=== PATIENT | female | born 2000 | race Caucasian/White ===

== ENCOUNTER → 2018-04-01 15:08 | Outpatient (CLI) | payer BC, SELFPAY ==
--- NOTE | 2018-04-01 15:24 | XR_ITS ---
XR abdomen min 2V HISTORY: ITS.REASON: EPIGASTRIC PAIN ORDERING PHYSICIAN: RADHAMES Payan PATIENT AGE: 17 years COMPARISON: None FINDINGS: The bowel gas pattern is unremarkable. No obvious obstruction.. No abnormal calcifications are evident. No obvious renal or ureteral calculi.. No acute bony anomalies evident. No evidence of free air. Nonspecific nonobstructive bowel gas pattern. IMPRESSION: No acute finding
== END ==
PROVIDERS: PCP Physician Assistant; Visit Provider Physician Assistant
DX: R10.13 Epigastric pain (principal)
CPT/HCPCS: 74019

== ENCOUNTER → 2020-11-14 16:39 | Outpatient (CLI) | payer BC, SELFPAY ==
[2020-11-16 11:32] LABS: Covid-19 Nasal PCR Sendout P&C NEGATIVE
== END ==
PROVIDERS: PCP Family Medicine; Visit Provider Family Medicine
DX: Z03.818 Encounter for observation for suspected exposure to other biological agents ruled out (principal)
CPT/HCPCS: U0004

== ENCOUNTER 2020-11-23 13:35 | Emergency (ER) | payer BC, SELFPAY ==
[2020-11-23 13:36] VITALS: BP 142/101; PULSE 120; RESP 19; TEMP 36.8; O2SAT 98; BMI 17.2
--- NOTE | 2020-11-23 13:49 | HMH.EDGENADL ---
ED Disposition Clinical Impression: Cystitis Disposition: Home, Self-Care Condition on Discharge: Good Additional Instructions: Please take medications as prescribed. Continue [id number] medications/prescribed medications for GI discomfort. Return immediately if any new or worsening symptoms prior to following up with gastroenterology next week. Prescriptions: Nitrofurantoin Monohyd/M-Cryst [Macrobid 100 mg Capsule] 100 mg PO BID #14 cap Transmission Status: Pending to [facility] #[id number] Referrals: Margarito Cline MD [Primary Care Provider] - - Critical Care Critical Care Time: No Attestation: On 11/23/20, the high probability of a clinically significant, sudden or life threatening deterioration of the following system(s) required my full and direct attention, intervention and personal management. The time I documented below is in addition to time spent performing reported procedures but includes the following listed in this critical care notation. Medical Decision Making - Medical Records Medical records reviewed: Yes: I reviewed the patient's medical records. - Johny Inquiry Pt receiving controlled substance: No Vital Signs: 11/23/20 13:36 11/23/20 14:29 Temperature 98.2 F Temperature Source Oral Pulse Rate [Left Radial] 120 H 68 Respiratory Rate 19 18 Blood Pressure [Right Arm] 142/101 H 123/86 Blood Pressure Mean [Right Arm] 114 98 Blood Pressure Source [Right Arm] Automatic Cuff Automatic Cuff Blood Pressure Position [Right Arm] Sitting Sitting 02 Sat by Pulse Oximetry 98 100 Oxygen Delivery Method Room Air - Lab Data Lab Results 11/23/20 13:45: Urine Color Yellow, Urine Appearance Clear, Urine pH 6.5, Ur Specific Ord <= 1.005, Urine Protein Negative, Urine Glucose (UA) Negative, Urine Ketones Negative, Urine Blood Negative, Urine Nitrate Negative, Urine Bilirubin Negative, Urine Urobilinogen 0.2, Ur Leukocyte Esterase 1+ A, Urine RBC None, Urine WBC 10-20, Ur Squamous Epith Cells 5-10, Urine Bacteria 2+ 11/23/20 13:45: Urine HCG, Qual Negative 11/23/20 14:00: WBC 4.7 L, RBC 5.13, Hgb 15.9, Hct 47.3 H, MCV 92.3, MCH 31.0, MCHC 33.6, RDW 12.7, Plt Count 275, MPV 6.9 L, Neut % (Auto) 65.2, Lymph % (Auto) 26.1, Eaton % (Auto) 6.3, Eos % (Auto) 1.7, Baso % (Auto) 0.7, Neut # (Auto) 3.1, Lymph # (Auto) 1.2, Eaton # (Auto) 0.3, Eos # (Auto) 0.1, Baso # (Auto) 0.0 11/23/20 14:00: Sodium 141, Potassium 3.9, Chloride 103, Carbon Dioxide 26, Anion Gap 15.9 H, BUN 9, Creatinine 0.90, Estimated Creat Clear 82, Estimated GFR 78, Est GFR ( Amer) 95, Glucose 124 H, Calcium 10.3 H, Total Bilirubin 0.9, AST 28, ALT 20, Alkaline Phosphatase 48, Total Protein 8.7 H, Albumin 5.1 H, Globulin 3.6 H, Albumin/Globulin Ratio 1.4, Amylase 74, Lipase 206 11/23/20 14:00: Magnesium 2.0 Result diagrams: 11/23/20 14:00 11/23/20 14:00 Orders (Tests/Meds): ED MEDICATIONS Discontinued Medications Generic Name Dose Route Start Last Admin Trade Name Freq PRN Reason Stop Dose Admin Belladonna Alkaloids 60 ml 11/23/20 13:59 11/23/20 14:16 Gi Cocktail 60ml Udc PO 11/23/20 14:00 60 ml ONCE ONE Administration Lactated Ringer's 1,000 mls @ 999 mls/hr 11/23/20 14:00 11/23/20 14:16 Lactated Ringer's 1000 Ml Bag IV 11/23/20 15:00 999 mls/hr .Q1H1M SHY Administration Nitrofurantoin Macrocrystals 100 mg 11/23/20 15:30 11/23/20 15:36 Nitrofurantoin 100mg Capsule PO 11/23/20 15:31 100 mg ONCE ONE Administration ORDERS Category Date Time Status Urine Culture Stat Micro 11/23/20 13:45 Received Medical Decision Narrative: Patient is a 20-year-old female presenting with concern for dehydration. Patient does have abdominal pain that has been pretty constant for the past several months. No signs of acute surgical abdomen on evaluation today but there will be serial abdominal checks throughout emergency department stay. Patient be treated with a fluid bolus as
[2020-11-23 14:10] LABS: Microscopic, Urine URINE MICROSCOPIC (MICROSCOPIC)
[2020-11-23 14:13] LABS: Appearance,Urine CLEAR (Clear); Bilirubin,Urine Negative (Negative); Blood, Urine Negative (Negative); Color,Urine YELLOW (Yellow); Glucose,Urine (UA) Negative (Negative); Ketones,Urine Negative (Negative); Leukocyte Esterase,Urine 1+ (Negative); Nitrate,Urine Negative (Negative); PH,Urine 6.5 (5.0-8.5); Protein,Urine Negative (Negative); Specific Gravity, Urine <= 1.005 (1.005-1.030); Urobilinogen,Urine 0.2 EU/dl (0.2)
[2020-11-23 14:15] LABS: Urine Pregnancy, HCG Qual. Negative (Negative)
[2020-11-23 14:21] LABS: Bacteria,Urine 2+ /lpf
[2020-11-23 14:23] LABS: Basophils % 0.7 % (0.1-2.0); Eosinophils # 0.1 K/mm3 (0.0-0.4); Eosinophils % 1.7 % (0.1-12.0); Hematocrit 47.3 % (37.0-47.0); Hemoglobin 15.9 g/dL (12.2-16.2); Lymphocytes # 1.2 K/mm3 (0.7-4.5); Lymphocytes % 26.1 % (10-50); Mean Corpuscular HGB Conc 33.6 g/dL (31.8-35.4); Mean Corpuscular Volume 92.3 fl (81-99); Mean Platelet Volume 6.9 fl (7.4-10.4); Monocytes # 0.3 K/mm3 (0.1-1.0); Monocytes % 6.3 % (1.7-9.3); Neutrophils # 3.1 K/mm3 (1.8-7.8); Neutrophils % 65.2 % (37.0-80.0); Platelet Count 275 K/mm3 (142-424); Red Blood Count 5.13 M/mm3 (4.20-5.40); Red Cell Distribution Width 12.7 % (11.5-17.5); White Blood Count 4.7 K/mm3 (4.8-10.8)
[2020-11-23 14:24] LABS: Chloride 103 mmol/L (98-107); Sodium 141 mmol/L (136-145)
[2020-11-23 14:25] LABS: Potassium 3.9 mmoL/L (3.5-5.1)
[2020-11-23 14:27] LABS: Alanine Aminotransferase 20 U/L (12-78); Alkaline Phosphatase 48 U/L (38-126); Amylase 74 U/L (30-110); Anion Gap 15.9 mEq/L (5-15); Aspartate Amino Transferase 28 U/L (14-36); Bilirubin,Total 0.9 mg/dl (0.2-1.3); Blood Urea Nitrogen 9 mg/dl (7-17); Calcium 10.3 mg/dl (8.4-10.2); Carbon Dioxide 26 mmol/L (22.0-30.0); Creatinine Clearance Estimated 82 mL/min (50-200); Estimated Glomerular Filt Rate 78 ml/min (>60); GFR (African American) 95 ML/MIN (>60); Glucose 124 mg/dl (74-100); Lipase 206 U/L (23-300)
[2020-11-23 14:28] LABS: Albumin Level 5.1 g/dl (3.5-5.0); Albumin/Globulin Ratio 1.4 (1.1-1.8); Globulin 3.6 g/dL (1.3-3.2); Total Protein,Serum 8.7 g/dl (6.3-8.2)
[2020-11-23 14:29] VITALS: BP 123/86; PULSE 68; RESP 18; O2SAT 100
[2020-11-23 16:55] VITALS: BP 117/75; PULSE 74; RESP 16; TEMP 36.6; O2SAT 98
== END 2020-11-23 16:57 | disposition home or self-care (01) ==
PROVIDERS: Emergency Provider Emergency Medicine; PCP Family Medicine
DX: N30.00 Acute cystitis without hematuria (principal); E86.0 Dehydration; R03.0 Elevated blood-pressure reading, without diagnosis of hypertension
CPT/HCPCS: 80053; 81001; 81025; 82150; 83690; 83735; 85025; 87086; 96365; 99283

== ENCOUNTER 2022-11-08 17:54 | Emergency (ER) | payer BC, SELFPAY ==
[2022-11-08 17:55] VITALS: BP 139/98; PULSE 82; RESP 17; TEMP 37.3; O2SAT 98; BMI 19.2
[2022-11-08 18:05] VITALS: BP 139/98; PULSE 82; RESP 17; TEMP 37.3; O2SAT 98; BMI 19.2
--- NOTE | 2022-11-08 18:19 | EXP.UTC ---
Discharge Plan Disposition Patient Disposition: Home, Self-Care Condition: Good Prescriptions Prescriptions: New cephalexin 500 mg capsule 500 mg PO QID 10 Days Qty: 40 0RF mupirocin 2 % ointment 1 applic topical TID 10 Days Qty: 22 0RF Rx Instructions: apply to front and back of piercing for infection ondansetron 4 mg tablet,disintegrating 4 mg PO Q8H PRN (Reason: nausea and vomiting) Qty: 10 0RF No Action spironolactone 50 mg tablet 50 mg PO DAILY Qty: 60 Label Comments: TK 1 T PO BID norethindrone-e.estradiol-iron 1 mg-20 mcg (21)/75 mg (7) tablet 1 tab PO DAILY Qty: 28 0RF nitrofurantoin monohyd/m-cryst 100 MG capsule 100 mg PO BID Qty: 14 0RF Referrals Follow up/Referrals: Margarito Cline MD [Primary Care Provider] - See instructions Activity Restrictions/Add. Instructions Additional Instructions/Restrictions: Make sure to clean piercing well before applying topical medication Follow up with your Family Doctor if no improvement or any worsening of symptoms Take medication as prescribed Return if needed Straight to ER if any worsening of symptoms, fever, chills or streaks Clinical Impressions Clinical Impression: Infection of right pierced ear Instructions Patient Instructions: Cephalexin, Mupirocin Discharge ED Provider: Sharri Espino [facility] [place] General Stated complaint: inf ear piercing Mode of Arrival: Ambulatory Source of Information: Patient Limitations: No Limitations Time Seen by Provider: 11/08/22 18:19 Description of Symptoms (Recalled from Triage Doc. by RN): PATIENT C/O SWELLING, REDNESS AND WARMTH TO LEFT EAR. SHE REPORTS SHE GOT HER EAR PIERCED APPROX 2 WEEKS AGO HEENT Symptoms (Recalled from RN notes): Yes Resp Symptoms (Recalled from RN notes): No Skin Symptoms (Recalled from RN notes): No MS Symptoms (Recalled from RN notes): No Functional Status (Recalled from RN notes): WNL History of Present Illness Provider Complaint: Patient states that she got her cartilage pierced in her right ear about 2 weeks ago states that she has been having redness and swelling to her right ear States that today it is sore to the touch and the redness is starting to spread down her ear so she came in Related Data Home Medications Medication Instructions Recorded Confirmed spironolactone 50 mg tablet 50 mg PO DAILY #60 tabs 04/29/19 04/29/19 Previous Rx's Medication Instructions Recorded nitrofurantoin 100 mg PO BID #14 caps 11/23/20 monohydrate/macrocrystals 100 mg capsule norethindrone 1 mg-ethinyl 1 tab PO DAILY #28 tabs 02/28/22 estradiol 20 mcg (21)-iron 75 mg (7) tablet cephalexin 500 mg capsule 500 mg PO QID 10 days #40 caps 11/08/22 mupirocin 2 % topical ointment 1 applic topical TID 10 days #22 11/08/22 grams ondansetron 4 mg disintegrating 4 mg PO Q8H PRN nausea and 11/08/22 tablet vomiting #10 tabs Allergies Allergy/AdvReac Type Severity Reaction Status Date / Time No Known Allergies Allergy Verified 05/08/20 09:01 Worker's Comp Is this a Worker's Comp case?: No [facility] Disclaimer: The information contained in this section may have been updated after the patient was seen, as this information can be updated by other users. Medical History (Updated 11/08/22 @ 18:40 by Sharri Espino APRN) History of gastroesophageal reflux (GERD) Urinary tract infection Social History (Updated 11/08/22 @ 18:11 by Digna Pitts RN) Smoking Status: Never smoker alcohol intake: never substance use type: denies use current occupational status: student Travel in the last 8 weeks: None ROS Obtained: Yes All systems reviewed & no additional complaints except as documented and Yes Systems reviewed as appropriate & no additional complaints except as documented Constitutional Constitutional: Reports system reviewed and no additional complaints, except as documented and Reports as per HPI Eyes Eyes: Reports sy
[2022-11-08 18:28] VITALS: BP 139/98; PULSE 82; RESP 17; TEMP 37.3; O2SAT 98
== END 2022-11-08 18:45 | disposition home or self-care (01) ==
PROVIDERS: Emergency Provider Nurse Practitioner; PCP Family Medicine
DX: S01.331A Puncture wound without foreign body of right ear, initial encounter (principal); A49.01 Methicillin susceptible Staphylococcus aureus infection, unspecified site
CPT/HCPCS: 87070; 87077; 87186; 87205; 99212; G0463

== ENCOUNTER → 2022-12-05 12:38 | Outpatient (CLI) | payer BC, SELFPAY ==
[2022-12-08 18:08] LABS: H. pylori Breath Test Negative (Negative)
== END ==
PROVIDERS: PCP Family Medicine; Visit Provider Family Medicine
DX: R10.84 Generalized abdominal pain (principal)
CPT/HCPCS: 83013